=== PATIENT | female | born 1950 | race Native Hawaiian/Other Pacific Islander ===

== ENCOUNTER → 2020-03-06 | Emergency (ER) | payer OTHER ==
[~2020-03-06] VITALS: Ht 170.2 cm; Wt 49.4 kg
[~2020-03-06] MED LIST: ACID CONTROL20 MG PO; ALPR0.2566 PO; ASPIRIN 81 LOW81 MG PO; BUSP15TAB2 PO; BUSP5TAB2 PO; BUSPIRONE10 MG PO; BUSPIRONE15 MG PO; CHOL100034 PO; CLON0.5T36 PO; D325 MCG PO; DONE5TAB PO; DULO30CA PO; ESCITALOPRAM10 MG PO; FISH OIL1000 M1 PO; LAMICTAL100 MG PO; LAMICTAL200 MG PO; LAMO100T PO; LORA1TAB17 PO; MAGNSUS68 PO; MEMA5TAB PO; MIRTAZAPINE7.5 MG PO; NAMENDA5 MG PO; PRAVACHOL20 MG PO; QUET100T2 PO; QUET25TA2 PO; SEROQUEL50 MG PO; TOPAMAX50 MG PO; TRAZ50TA36 PO; TYLENOL325 MG PO; VITAMIN D31000 UNIT PO
[2020-03-06 01:15] VITALS: BP 129/82; TEMP 98.7
[2020-03-06 01:41] LABS: PLATELET COUNT 194 K/uL (152-353)
[2020-03-06 01:44] LABS: POTASSIUM 4.1 mmol/L (3.6-5.2)
== END ==
LOC: ED 01:11
PROVIDERS: Emergency Medicine
DX: R44.2 Other hallucinations (principal); F31.89 Other bipolar disorder; Z11.59 Encounter for screening for other viral diseases; Z04.6 Encounter for general psychiatric examination, requested by authority
CPT/HCPCS: 36415; 80053; 85027; 87635; 93005; 99283; 99285; U00003

== ENCOUNTER 2021-07-28 21:15 | Emergency (ER) | payer OTHER ==
[~2021-07-28] VITALS: Ht 170.2 cm; Wt 81.6 kg
[~2021-07-28 21:15] MED LIST changes: +OLANZAPINE5 MG PO; +VITAMIN D50000 UNIT PO; +WELLBUTRIN100 M1 PO
[2021-07-28 22:03] LABS: PLATELET COUNT 239 K/uL (152-353)
[2021-07-28 22:07] LABS: POTASSIUM 4.7 mmol/L (3.6-5.2)
[2021-07-28 22:56] VITALS: BP 156/83; TEMP 98.4
[2021-07-29] MEDS ORDERED: BUSPIRONE10 MG PO (07:29)
[2021-07-29] MEDS ORDERED: DULOXETINE HYDR60 MG PO (07:31)
[2021-07-29] MEDS ORDERED: FAMOTIDINE20 MG PO (07:32)
[2021-07-29] MEDS ORDERED: CLON1TAB18 PO ×2 (07:33)
[2021-07-29] MEDS ORDERED: TYLENOL325 MG PO (07:35)
[2021-07-29] MEDS ORDERED: MEMANTINE HYDRO10 MG PO (07:36)
[2021-07-29] MEDS ORDERED: PRAVACHOL20 MG PO (07:38)
[2021-07-29] MEDS ORDERED: PRIMIDONE50 M1 PO (07:39)
[2021-07-29] MEDS ORDERED: TRAZODONE HYDR100 MG PO (07:41)
== END 2021-07-28 22:58 | disposition still patient (30) ==
LOC: ED 21:16
PROVIDERS: Emergency Medicine Emergency Medical Services
DX: F32.9 Major depressive disorder, single episode, unspecified (principal); Z11.52 Encounter for screening for COVID-19; Z04.6 Encounter for general psychiatric examination, requested by authority
CPT/HCPCS: 36415; 80053; 85027; 87635; 93005; 99283; U0003